=== PATIENT | male | born 1960 | race Caucasian/White ===

== ENCOUNTER 2018-04-30 14:44 | Inpatient (IN) | payer BC ==
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
[2018-04-30] MEDS ORDERED: NS 1,000 ML IV ONE (14:54)
[2018-04-30] MEDS ORDERED: fentaNYL 100 MCG/2 ML INJ IVP ONE ×2 (14:54→15:40)
[2018-04-30] MEDS ORDERED: LET GEL TOPICAL 1 EA SYR TP ONE (15:28)
[2018-04-30] MEDS ORDERED: KETOROLAC 30 MG/1 ML SDV ONE (15:43)
[2018-04-30] MEDS ORDERED: KETOROLAC 30 MG/1 ML SDV IVP ONE (15:51)
[2018-04-30] MEDS ORDERED: HYDROmorphONE/DILAUDID 1 MG/ML INJ ONE (15:55)
[2018-04-30] MEDS ORDERED: HYDROmorphONE/DILAUDID 2 MG/ML INJ IVP ONE (16:16)
[2018-04-30] MEDS ORDERED: ONDANSETRON 4 MG/2 ML VIAL IVP PRN (16:20)
[2018-04-30] MEDS ORDERED: IOPAMIDOL (ISOVUE-300) 100 ML BTL ONE (16:22)
[2018-04-30 16:37] LABS: PLATELET COUNT 340 10^3/uL (150-400)
--- NOTE | 2018-04-30 18:41 | GOP ---
DATE OF OPERATION: 04/30/2018 SURGEON: Christopher Yip MD PREOPERATIVE DIAGNOSIS: Right Pneumothorax with slight mediastinal shift POSTOPERATIVE DIAGNOSIS: Right Pneumothorax with slight mediastinal shift PROCEDURE PERFORMED: 28FR right chest tube placement FINDINGS: Right Pneumothorax with slight mediastinal shift INDICATIONS: Right rib fractures with hemopneumothorax. DESCRIPTION OF PROCEDURE: The patient is placed in the ER [facility] in trauma bay 1. Because of the scapula and clavicular fractures, it is difficult to elevate his right arm out of the surgical area. It is secured to the [facility] rail with a Kerlix gauze (over a bath link as a pad). His right chest is carefully clipped, prepped, and draped. An incision is planned just posterior to the anterior axillary line. The skin is anesthetized down to the subcutaneous tissue. The skin is sharply incised. A spreading technique is used to get down to the level of the rib. The intercostal area is carefully injected. A spreading technique with a clamp is used to enter the chest. A 28-Setswana chest tube is directed toward the apex. It is secured in position with 2 sutures #0 nylon. A sterile dressing is applied. He is connected to a Pleur-evac. Followup chest x-ray shows the lung to be expanded. Followup CTs are obtained as part of his trauma evaluation. These include the chest, neck, abdomen, and pelvis. The findings are as noted above. He will be admitted to the ICU. A followup chest x-ray will be obtained in the morning. The chest tube is placed to 20 cm of suction. /[id number]/MODL MTDD
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
[2018-04-30] MEDS: ACETAMINOPHEN 500 MG TAB PO SCH (18:47)
[2018-04-30] MEDS: HYDROmorphONE/DILAUDID 1 MG/ML INJ IVP PRN (18:47)
[2018-04-30] MEDS: ASPIRIN EC 81 MG TAB PO SCH (20:14)
[2018-04-30] MEDS: CYCLOBENZAPRINE 10 MG TAB PO PRN (20:15)
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
[2018-04-30] MEDS: ATORVASTATIN CALCIUM 20 MG TAB PO SCH (21:17)
[2018-04-30] MEDS: PATCH REMOVAL 1 EA PATCH TD SCH (21:34)
[2018-04-30] MEDS: LIDOCAINE 4%/MENTHOL 1% PATCH TD SCH (21:41)
[2018-04-30] MEDS: BACITRACIN ZINC 14.2 GM OINTTUBE TP SCH (22:24)
[2018-05-01] MEDS: ACETAMINOPHEN 500 MG TAB PO SCH ×3 (01:37→17:50)
[2018-05-01] MEDS ORDERED: KETAMINE 500 MG in D5W 500 ML IV SCH (02:30)
--- NOTE | 2018-05-01 06:23 | PDIAF ---
- Diagnosis Diagnosis: right scapula, right clavicle fx, right rib fxs Code Status: Full Code - Medication Management Discharge Medications: Medications to Continue on Transfer Ascorbic Acid [Vitamin C 500 mg (*)] 500 mg PO DAILY 04/30/18 [Last Taken Unknown] Aspirin EC [Aspirin EC 81 mg (*)] 81 mg PO HS 04/30/18 [Last Taken 04/30/18] Atorvastatin Calcium [Lipitor 20 mg (*)] 20 mg PO HS 04/30/18 [Last Taken ] Cholecalciferol Vit D3 [Vitamin D3 (*)] 2,000 units PO DAILY 04/30/18 [Last Taken Unknown] Glucosamine/Chondroitin [Glucosamine/Chondroitin (*)] 1 each PO DAILY 04/30/18 [ Last Taken Unknown] Herbals/Supplements -Info Only 1 ea PO DAILY 04/30/18 [Last Taken Unknown] Multivitamins [Multivitamin (*)] 1 each PO DAILY 04/30/18 [Last Taken Unknown] [place]-3 Fatty Acids [Fish Oil 1000 mg (*)] 1,000 mg PO DAILY 04/30/18 [Last Taken Unknown] Discharge Medications: Refer to the Discharge Home Medication list for PRN reason. - Orders Services needed: Home Care, Physical Therapy Home Care Face to Face: I certify that this patient was under my care and that I had the required [id number] encounter meeting the encounter requirements on the discharge day. My findings support the fact that the patient is homebound as defined in Home Care Face to Face Continued: CMS Chapter 7 Medicare Benefits Manual 30.1.1 , The condition of the patient is such that there exists a normal inability to leave home and consequently, leaving home would require a considerable and taxing effort. Diet Recommendation: no restrictions on diet Diet Texture: Regular Texture Diet Activity/Weight Bearing Restrictions: pendulum rom only right upper ext. sling at all times except rom. daily dressing changes to right clavicle. f/u at two weeks [facility]. seek attn for increasing pain, sob, numbness, other focal complaint Additional Instructions: pendulum rom only right upper ext sling at all times except rom daily dressing changes to right clavicle f/u at two weeks [facility] seek attn for increasing pain, sob, numbness, other focal complaint - Follow Up Care Current Providers and Referrals: Patient,NotPresent [Unknown] - As per Instructions Lj Quintero MD [Medical Doctor] -
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
[2018-05-01] MEDS: D5W NS 1,000 ML IV SCH (07:56)
[2018-05-01] MEDS ORDERED: ATORVASTATIN CALCIUM 20 MG TAB PO SCH (09:00)
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
[2018-05-01] MEDS: MULTIVITAMINS 1 EACH TAB PO SCH (10:56)
[2018-05-01] MEDS: OMEGA-3 FATTY ACIDS 1,000 MG CAP PO SCH (10:56)
[2018-05-01] MEDS: GLUCOSAMINE/CHONDROITIN CAP PO SCH (10:56)
[2018-05-01] MEDS: oxyCODONE IR 5 MG TAB PO PRN ×5 (10:56→23:57)
[2018-05-01] MEDS: BACITRACIN ZINC 14.2 GM OINTTUBE TP SCH ×3 (10:56→20:45)
[2018-05-01] MEDS: LIDOCAINE 4%/MENTHOL 1% PATCH TD SCH (11:00)
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
[2018-05-01] MEDS: CYCLOBENZAPRINE 10 MG TAB PO PRN ×2 (14:43→20:46)
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
[2018-05-01] MEDS: ASPIRIN EC 81 MG TAB PO SCH (20:45)
[2018-05-01] MEDS: ATORVASTATIN CALCIUM 20 MG TAB PO SCH (20:45)
[2018-05-01] MEDS: PATCH REMOVAL 1 EA PATCH TD SCH (20:46)
[2018-05-02] MEDS: ACETAMINOPHEN 500 MG TAB PO SCH ×3 (01:42→18:02)
[2018-05-02] MEDS: oxyCODONE IR 5 MG TAB PO PRN ×5 (07:39→22:05)
[2018-05-02] MEDS: CYCLOBENZAPRINE 10 MG TAB PO PRN ×2 (07:39→22:05)
[2018-05-02] MEDS: D5W NS 1,000 ML IV SCH (07:41)
--- NOTE | 2018-05-02 08:08 | SOAPPROG ---
SOAP Progress Note Assessment/Plan: Assessment: right rib fx right scapula fx right clavicle fx Plan: will iftikhar for orif right clavicle on th, spoke with lizz mccabe once patient surgically cleared for intervention non op treatment for right scapula fx dvt precautions pulm toilet for rib fx 05/01/18 07:00 05/02/18 08:06 Subjective: sore across ribs no new right shoulder issues Objective: Vital Signs Temp Pulse Resp BP Pulse Ox 36.7 C 65 13 107/64 96 05/02/18 04:00 05/02/18 04:00 05/02/18 04:00 05/02/18 04:00 05/02/18 04:00 05/01/18 05/02/18 05/03/18 05:59 05:59 05:59 Intake Total 2070 3716 Output Total 250 923 Balance [address] nontender at tip of olecranon intact r,u,m motor and sensory function ICD10 Worksheet Patient Problems: Problems Problem Status Onset Clavicle fracture Acute Pneumothorax Acute Rib fractures Acute Scapula fracture Acute
[2018-05-02] MEDS: BACITRACIN ZINC 14.2 GM OINTTUBE TP SCH ×3 (09:18→22:13)
[2018-05-02] MEDS: GLUCOSAMINE/CHONDROITIN CAP PO SCH (09:21)
[2018-05-02] MEDS: OMEGA-3 FATTY ACIDS 1,000 MG CAP PO SCH (09:21)
[2018-05-02] MEDS: MULTIVITAMINS 1 EACH TAB PO SCH (09:21)
[2018-05-02] MEDS: LIDOCAINE 4%/MENTHOL 1% PATCH TD SCH (09:37)
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
--- NOTE | 2018-05-02 11:15 | SOAPPROG ---
SOAP Progress Note Assessment/Plan: Assessment: Plan: Subjective: STILL VERY UNCOMFORTABLE MOVING. LUNGS CLEAR, HEART ML S1S2 ABD SOFT. RIGHT CHEST TUBE REMOVED. TRANSFER TO FLOOR WHEN OFF KETAMINE DRIP. Objective: Vital Signs Temp Pulse Resp BP Pulse Ox 36.7 C 64 16 107/62 94 05/02/18 04:00 05/02/18 08:23 05/02/18 08:23 05/02/18 08:23 05/02/18 08:23 05/01/18 05/02/18 05/03/18 05:59 05:59 05:59 Intake Total 0 1291 Output Total 250 923 Balance 1820 9224 ICD10 Worksheet Patient Problems: Problems Problem Status Onset Clavicle fracture Acute Pneumothorax Acute Rib fractures Acute Scapula fracture Acute
[2018-05-02] MEDS ORDERED: LACTULOSE 20 GM/30 ML UDCUP PO PRN (14:27)
[2018-05-02] MEDS ORDERED: MAGNESIUM HYDROXIDE 30 ML UDCUP PO PRN (14:27)
[2018-05-02] MEDS ORDERED: BISACODYL 10 MG SUPP PR PRN (14:27)
[2018-05-02] MEDS ORDERED: POLYETHYLENE GLYCOL 3350 17 GM PKT PO PRN (14:27)
--- NOTE | 2018-05-02 15:34 | ASMTCMCOM ---
CM Note CM Note Notes: Will need HC- PT on discharge. Would like to use [facility]. [facility] notified. Patient to have surgery on his tuesday. Date Signed: 05/02/2018 03:33 PM Electronically Signed By:Ammy Mg LCSW
[2018-05-02] MEDS: ASPIRIN EC 81 MG TAB PO SCH (22:05)
[2018-05-02] MEDS: SENNOSIDES/DOCUSATE SODIUM TAB PO SCH (22:05)
[2018-05-02] MEDS: ATORVASTATIN CALCIUM 20 MG TAB PO SCH (22:05)
[2018-05-02] MEDS: PATCH REMOVAL 1 EA PATCH TD SCH (22:12)
[2018-05-03] MEDS: ACETAMINOPHEN 500 MG TAB PO SCH ×3 (01:12→19:13)
[2018-05-03] MEDS: oxyCODONE IR 5 MG TAB PO PRN ×7 (01:12→22:28)
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
[2018-05-03] MEDS: CYCLOBENZAPRINE 10 MG TAB PO PRN ×2 (08:02→17:21)
[2018-05-03] MEDS: SENNOSIDES/DOCUSATE SODIUM TAB PO SCH ×2 (08:03→21:17)
[2018-05-03] MEDS: OMEGA-3 FATTY ACIDS 1,000 MG CAP PO SCH (08:04)
[2018-05-03] MEDS: MULTIVITAMINS 1 EACH TAB PO SCH (08:04)
[2018-05-03] MEDS: GLUCOSAMINE/CHONDROITIN CAP PO SCH (08:04)
[2018-05-03] MEDS: ENOXAPARIN 40 MG/0.4 ML SYR SC SCH (08:05)
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
[2018-05-03] MEDS: BACITRACIN ZINC 14.2 GM OINTTUBE TP SCH ×3 (10:41→22:33)
[2018-05-03] MEDS: LIDOCAINE 4%/MENTHOL 1% PATCH TD SCH (10:48)
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
[2018-05-03] MEDS: ATORVASTATIN CALCIUM 20 MG TAB PO SCH (21:17)
[2018-05-03] MEDS: METOCLOPRAMIDE 10 MG TAB PO SCH (22:17)
[2018-05-03] MEDS: PATCH REMOVAL 1 EA PATCH TD SCH (22:32)
[2018-05-04] MEDS: ACETAMINOPHEN 500 MG TAB PO SCH ×4 (02:12→19:25)
[2018-05-04] MEDS: CYCLOBENZAPRINE 10 MG TAB PO PRN ×2 (04:42→21:57)
[2018-05-04] MEDS: oxyCODONE IR 5 MG TAB PO PRN ×4 (04:42→21:58)
[2018-05-04] MEDS: METOCLOPRAMIDE 10 MG TAB PO SCH (08:03)
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
[2018-05-04] MEDS: OMEGA-3 FATTY ACIDS 1,000 MG CAP PO SCH (09:26)
[2018-05-04] MEDS: LIDOCAINE 4%/MENTHOL 1% PATCH TD SCH (09:26)
[2018-05-04] MEDS: BACITRACIN ZINC 14.2 GM OINTTUBE TP SCH ×3 (09:26→20:01)
[2018-05-04] MEDS: GLUCOSAMINE/CHONDROITIN CAP PO SCH (09:26)
[2018-05-04] MEDS: MULTIVITAMINS 1 EACH TAB PO SCH (09:26)
[2018-05-04] MEDS: SENNOSIDES/DOCUSATE SODIUM TAB PO SCH ×2 (09:27→20:01)
[2018-05-04] MEDS ORDERED: LR 1,000 ML IV ONE (13:30)
--- NOTE | 2018-05-04 13:57 | PDANEPAE ---
ANE Past Medical History - Pulmonary History Hx Oxygen in Use at Home: No Hx Sleep Apnea: No Sleep Apnea Screening Result - Last Documented: Negative - Endocrine History Hx Diabetes: No Obesity: no - Chronic Pain History Chronic Pain: No ANE Review of Systems Review of Systems: ANE Patient History - Allergies Allergies/Adverse Reactions: No Known Allergies Allergy (Verified 04/30/18 17:36) - Home Medications Home medications: home medication list seen and reviewed Home Medications: Ascorbic Acid [Vitamin C 500 mg (*)] 500 mg PO DAILY 04/30/18 [Last Taken Unknown] Aspirin EC [Aspirin EC 81 mg (*)] 81 mg PO HS 04/30/18 [Last Taken 04/30/18] Atorvastatin Calcium [Lipitor 20 mg (*)] 20 mg PO HS 04/30/18 [Last Taken ] Cholecalciferol Vit D3 [Vitamin D3 (*)] 2,000 units PO DAILY 04/30/18 [Last Taken Unknown] Glucosamine/Chondroitin [Glucosamine/Chondroitin (*)] 1 each PO DAILY 04/30/18 [ Last Taken Unknown] Herbals/Supplements -Info Only 1 ea PO DAILY 04/30/18 [Last Taken Unknown] Multivitamins [Multivitamin (*)] 1 each PO DAILY 04/30/18 [Last Taken Unknown] [place]-3 Fatty Acids [Fish Oil 1000 mg (*)] 1,000 mg PO DAILY 04/30/18 [Last Taken Unknown] - NPO status NPO Status: no food or drink >8 hours NPO Since - Liquids (Date): 05/04/18 NPO Since - Liquids (Time): 00:00 NPO Since - Solids (Date): 05/04/18 NPO Since - Solids (Time): 00:00 - Anes Hx Anes Hx: no prior problems - Smoking Hx Smoking Status: Never smoked ANE Labs/Vital Signs - Labs Result Diagrams: 04/30/18 14:50 04/30/18 14:50 - Vital Signs Blood Pressure: 108/60 Heart Rate: 70 Respiratory Rate: 16 O2 Sat (%): 94 Height: 177.8 cm Weight: 83.915 kg ANE Physical Exam - Airway Neck exam: FROM Mallampati Score: Class 2 Mouth exam: normal dental/mouth exam - Pulmonary Pulmonary: no respiratory distress, no rales or rhonchi, clear to auscultation - Cardiovascular Cardiovascular: regular rate and rhythym, no murmur, rub, or gallop - ASA Status ASA Status: II ANE Anesthesia Plan Anesthesia Plan: GA w LMA
[2018-05-04] MEDS ORDERED: LIDOCAINE 2% JELLY 5 ML TUBE ONE (14:23)
[2018-05-04] MEDS ORDERED: DEXAMETHASONE 4 MG/ML VIAL ONE (14:23)
[2018-05-04] MEDS ORDERED: ONDANSETRON 4 MG/2 ML VIAL ONE (14:23)
[2018-05-04] MEDS ORDERED: PROPOFOL 200 MG/20 ML VIAL ONE (14:23)
[2018-05-04] MEDS ORDERED: KETAMINE 200 MG/20 ML VIAL ONE (14:23)
[2018-05-04] MEDS: BACITRACIN 50,000 UNITS/10 ML SYR IRR ONE ×2 (14:25→17:29)
[2018-05-04] MEDS: ceFAZolin 2 GM/DEXTROSE 100 ML IV ONE ×2 (14:26→14:42)
[2018-05-04] MEDS: BUPIVACAINE/EPI 0.5% 30 ML SDV ONE ×2 (14:26→15:40)
[2018-05-04] MEDS: MIDAZOLAM 2 MG/2 ML VIAL IVP ONE ×2 (14:26→14:30)
[2018-05-04] MEDS: POLYMYXIN B SULFATE 500,000 UNIT/10 ML SYR IRR ONE ×2 (14:26→17:32)
[2018-05-04] MEDS ORDERED: ESMOLOL HCL 100 MG/10 ML VIAL IV ONE (15:01)
[2018-05-04] MEDS ORDERED: ENALAPRILAT DIHYDRATE 1.25 MG/ML VIAL ONE (15:06)
[2018-05-04] MEDS ORDERED: LABETALOL HCL 5 MG/ML 20 ML MDV IVP PRN (15:17)
[2018-05-04] MEDS ORDERED: HYDROCODONE/APAP 5/325 TAB PO PRN (15:17)
[2018-05-04] MEDS ORDERED: DIAZEPAM 5 MG/ML 1 ML SYR IVP PRN (15:17)
[2018-05-04] MEDS ORDERED: fentaNYL 100 MCG/2 ML INJ IVP PRN (15:17)
[2018-05-04] MEDS ORDERED: NALOXONE HCL 0.4 MG/ML INJ IVP PRN (15:17)
[2018-05-04] MEDS ORDERED: NS 500 ML IV PRN (15:17)
[2018-05-04] MEDS ORDERED: PROMETHAZINE HCL 25 MG/ML INJ IVP PRN (15:17)
[2018-05-04] MEDS ORDERED: oxyCODONE IR 5 MG TAB PO PRN (15:17)
[2018-05-04] MEDS ORDERED: ACETAMINOPHEN 500 MG TAB PO PRN (15:17)
--- NOTE | 2018-05-04 15:49 | POSTOPPROG ---
Post Op Note Date of Operation: 05/04/18 Surgeon: Lj Quintero [place] [facility] Supervisor: jeremy Anesthesiologist: ne Anesthesia: GET(General Endotracheal) Pre-op Diagnosis: right clavicle fx Post-op Diagnosis: same Indication: same Procedure: right clavicle fx orif Inf/Abcess present in the surg proc area at time of surgery?: No Depth: Superfical (Skin SQ) EBL: Minimal
--- NOTE | 2018-05-04 16:03 | POSTANESTH ---
Post Anesthetic Evaluation Cardiovascular Status: Normal, Stable, Similar to Pre-Op Cond Respiratory Status: Normal, Stable, Similar to Pre-op Cond. Level of Consciousness/Mental Status: Can Participate in Eval, Mildly Sleepy, Arousable Pain Control: Adequate, Prn Tx Ordered Nausea/Vomiting Control: Adequate, Prn Tx Ordered Complications Possibly Related to Anesthesia: None Noted
[2018-05-04] MEDS ORDERED: fentaNYL 100 MCG/2 ML INJ ONE (16:29)
[2018-05-04] MEDS: HYDROmorphONE/DILAUDID 1 MG/ML INJ IVP PRN (17:15)
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
[2018-05-04] MEDS: ASPIRIN EC 81 MG TAB PO SCH (19:54)
[2018-05-04] MEDS: ATORVASTATIN CALCIUM 20 MG TAB PO SCH (20:01)
[2018-05-04] MEDS: PATCH REMOVAL 1 EA PATCH TD SCH (21:53)
[2018-05-04] MEDS: ceFAZolin 2 GM/DEXTROSE 100 ML IV SCH (21:57)
[2018-05-05] MEDS: oxyCODONE IR 5 MG TAB PO PRN ×4 (01:06→13:03)
[2018-05-05] MEDS: ACETAMINOPHEN 500 MG TAB PO SCH ×2 (04:11→10:10)
[2018-05-05] MEDS: ceFAZolin 2 GM/DEXTROSE 100 ML IV SCH (06:39)
[2018-05-05 08:35] VITALS: BP 99/67
--- NOTE | 2018-05-05 09:15 | PDIAF ---
- Diagnosis Diagnosis: right scapula, right clavicle fx, right rib fxs Code Status: Full Code - Medication Management Discharge Medications: Medications to Continue on Transfer Ascorbic Acid [Vitamin C 500 mg (*)] 500 mg PO DAILY 04/30/18 [Last Taken Unknown] Aspirin EC [Aspirin EC 81 mg (*)] 81 mg PO HS 04/30/18 [Last Taken 04/30/18] Atorvastatin Calcium [Lipitor 20 mg (*)] 20 mg PO HS 04/30/18 [Last Taken ] Cholecalciferol Vit D3 [Vitamin D3 (*)] 2,000 units PO DAILY 04/30/18 [Last Taken Unknown] Glucosamine/Chondroitin [Glucosamine/Chondroitin (*)] 1 each PO DAILY 04/30/18 [ Last Taken Unknown] Herbals/Supplements -Info Only 1 ea PO DAILY 04/30/18 [Last Taken Unknown] Multivitamins [Multivitamin (*)] 1 each PO DAILY 04/30/18 [Last Taken Unknown] [place]-3 Fatty Acids [Fish Oil 1000 mg (*)] 1,000 mg PO DAILY 04/30/18 [Last Taken Unknown] Cyclobenzaprine [Flexeril 10 MG (*)] 10 mg PO TID PRN #30 tab 05/05/18 [Last Taken Unknown] Lidocaine 4%/Menthol 1% [Icy Hot Lidocaine/Menthol 4%/1% Patch (*)] 1 patch TD DAILY patch 05/05/18 [Last Taken Unknown] oxyCODONE IR [Oxycodone Ir (*)] 5 - 10 mg PO Q3 PRN #30 tab 05/05/18 [Last Taken Unknown] Discharge Medications: Refer to the Discharge Home Medication list for PRN reason. - Orders Services needed: Home Care, Physical Therapy, Occupational Therapy Home Care Face to Face: I certify that this patient was under my care and that I had the required [id number] encounter meeting the encounter requirements on the discharge day. My findings support the fact that the patient is homebound as defined in Home Care Face to Face Continued: CMS Chapter 7 Medicare Benefits Manual 30.1.1 , The condition of the patient is such that there exists a normal inability to leave home and consequently, leaving home would require a considerable and taxing effort. Diet Recommendation: no restrictions on diet Diet Texture: Regular Texture Diet Activity/Weight Bearing Restrictions: pendulum rom only right upper ext. sling at all times except rom. daily dressing changes to right clavicle. f/u at two weeks [facility] seek attn for increasing pain, sob, numbness, other focal complaint Additional Instructions: pendulum rom only right upper ext sling at all times except rom daily dressing changes to right clavicle f/u at two weeks [facility] seek attn for increasing pain, sob, numbness, other focal complaint - Follow Up Care Current Providers and Referrals: Atul Rodriguez MD [Medical Doctor] - (follow up as needed, call if worsening SOB or problems breathing. ) Patient,NotPresent [Unknown] - As per Instructions Lj Quintero MD [Medical Doctor] - (2 weeks, call for an appointment )
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
[2018-05-05] MEDS: SENNOSIDES/DOCUSATE SODIUM TAB PO SCH (10:09)
[2018-05-05] MEDS: LIDOCAINE 4%/MENTHOL 1% PATCH TD SCH (10:11)
[2018-05-05] MEDS: ENOXAPARIN 40 MG/0.4 ML SYR SC SCH (10:11)
[2018-05-05] MEDS: MULTIVITAMINS 1 EACH TAB PO SCH (10:11)
[2018-05-05] MEDS: OMEGA-3 FATTY ACIDS 1,000 MG CAP PO SCH (10:11)
[2018-05-05] MEDS: GLUCOSAMINE/CHONDROITIN CAP PO SCH (10:11)
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
[2018-05-05] MEDS: BACITRACIN ZINC 14.2 GM OINTTUBE TP SCH (11:35)
--- NOTE | 2018-05-05 11:50 | PDIAF ---
- Diagnosis Diagnosis: right scapula, right clavicle fx, right rib fxs Code Status: Full Code - Medication Management Discharge Medications: Medications to Continue on Transfer Ascorbic Acid [Vitamin C 500 mg (*)] 500 mg PO DAILY 04/30/18 [Last Taken Unknown] Aspirin EC [Aspirin EC 81 mg (*)] 81 mg PO HS 04/30/18 [Last Taken 04/30/18] Atorvastatin Calcium [Lipitor 20 mg (*)] 20 mg PO HS 04/30/18 [Last Taken ] Cholecalciferol Vit D3 [Vitamin D3 (*)] 2,000 units PO DAILY 04/30/18 [Last Taken Unknown] Glucosamine/Chondroitin [Glucosamine/Chondroitin (*)] 1 each PO DAILY 04/30/18 [ Last Taken Unknown] Herbals/Supplements -Info Only 1 ea PO DAILY 04/30/18 [Last Taken Unknown] Multivitamins [Multivitamin (*)] 1 each PO DAILY 04/30/18 [Last Taken Unknown] [place]-3 Fatty Acids [Fish Oil 1000 mg (*)] 1,000 mg PO DAILY 04/30/18 [Last Taken Unknown] Cyclobenzaprine [Flexeril 10 MG (*)] 10 mg PO TID PRN #30 tab 05/05/18 [Last Taken Unknown] Lidocaine 4%/Menthol 1% [Icy Hot Lidocaine/Menthol 4%/1% Patch (*)] 1 patch TD DAILY patch 05/05/18 [Last Taken Unknown] oxyCODONE IR [Oxycodone Ir (*)] 5 - 10 mg PO Q3 PRN #30 tab 05/05/18 [Last Taken Unknown] Discharge Medications: Refer to the Discharge Home Medication list for PRN reason. - Orders Services needed: Home Care, Registered Nurse, Physical Therapy, Occupational Therapy Home Care Face to Face: I certify that this patient was under my care and that I had the required [id number] encounter meeting the encounter requirements on the discharge day. My findings support the fact that the patient is homebound as defined in Home Care Face to Face Continued: CMS Chapter 7 Medicare Benefits Manual 30.1.1 , The condition of the patient is such that there exists a normal inability to leave home and consequently, leaving home would require a considerable and taxing effort. Diet Recommendation: no restrictions on diet Diet Texture: Regular Texture Diet Activity/Weight Bearing Restrictions: pendulum rom only right upper ext. sling at all times except rom. daily dressing changes to right clavicle. f/u at two weeks [facility] seek attn for increasing pain, sob, numbness, other focal complaint Additional Instructions: pendulum rom only right upper ext sling at all times except rom daily dressing changes to right clavicle may shower without bandage f/u at two weeks [facility] seek attn for increasing pain, sob, numbness, other focal complaint - Follow Up Care Current Providers and Referrals: Atul Rodriguez MD [Medical Doctor] - (follow up as needed, call if worsening SOB or problems breathing. ) Patient,NotPresent [Unknown] - As per Instructions Lj Quintero MD [Medical Doctor] - (2 weeks, call for an appointment. Okay to take ibuprofen / aleve for pain, but limit the amount.)
--- NOTE | 2018-05-05 11:54 | ASMTDCNOTE ---
Case Management Discharge Discharge Order Complete? Answers: Yes Patient to Obtain Answers: Independently Medications Transportation Arranged Answers: Family/Friends Transport will Pick (Date 05/05/2018 12:00 AM & Time) Faxed Final Orders Answers: Yes Notes: [facility] Agency/Facility Transfer Answers: Yes Notes: [facility] Report Printed & Faxed to Receiving Agency Family Notified Answers: Yes Notes: Discharge Comments Notes: Patient is ready to d/c home today with [facility], OT/PT and nursing services. Patient's will transport him home. [facility] notified and all discharge summaries have been Allscripted to them. No further needs. Date Signed: 05/05/2018 11:53 AM Electronically Signed By:Zoila Monroy LCSW
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
== END 2018-05-05 13:20 | disposition home health service (06) | DRG 516 ==
LOC: F2N 18:00
PROVIDERS: ADMIT Surgery; ATTEND Surgery
PROC: 0W9930Z Drainage of Right Pleural Cavity with Drainage Device, Percutaneous Approach (ICD-10-PCS; 2018-04-30)
PROC: 0PS904Z Reposition Right Clavicle with Internal Fixation Device, Open Approach (ICD-10-PCS; principal; 2018-05-04 14:00)
DX: S42.001A Fracture of unspecified part of right clavicle, initial encounter for closed fracture (principal); S27.0XXA Traumatic pneumothorax, initial encounter; S22.41XA Multiple fractures of ribs, right side, initial encounter for closed fracture; S42.111A Displaced fracture of body of scapula, right shoulder, initial encounter for closed fracture; V18.0XXA Pedal cycle driver injured in noncollision transport accident in nontraffic accident, initial encounter; E78.5 Hyperlipidemia, unspecified; Y93.55 Activity, bike riding; Z79.82 Long term (current) use of aspirin
CPT/HCPCS: 82435-PO; 82565-PO; 82947-PO; 84132-PO; 84295-PO; 84520-PO; 85014-PO; 96374; 97116-GP; 97161-GP; 97165-GO; 97535-GO; C1713; J0690; J1100; J1170; J1650; J1885; J2250; J2270; J2405; J2704; J3010; Q9967

== ENCOUNTER → 2018-05-19 | Outpatient (CLI) | payer BC | LOC: FLAB 15:09 | PROVIDERS: ATTEND Surgery | DX: S27.0XXA Traumatic pneumothorax, initial encounter (principal); J90 Pleural effusion, not elsewhere classified ==

== ENCOUNTER → 2018-06-13 | Outpatient (CLI) | payer BC | LOC: FIMAGING 10:41 | PROVIDERS: ATTEND Orthopaedic Surgery | DX: S42.021D Displaced fracture of shaft of right clavicle, subsequent encounter for fracture with routine healing (principal) ==

== ENCOUNTER → 2018-07-26 | Outpatient (CLI) | payer BC | LOC: BMCIMAGING 13:35 | PROVIDERS: ATTEND Orthopaedic Surgery | DX: S42.021D Displaced fracture of shaft of right clavicle, subsequent encounter for fracture with routine healing (principal) ==